=== PATIENT | female | born 1945 | race Caucasian/White ===

== ENCOUNTER 2017-01-07 18:21 | Inpatient (IN) | payer OTHER, BC ==
[~2017-01-07] VITALS: Ht 149.9 cm; Wt 82.8 kg
[2017-01-07 20:14] LABS: HEMATOCRIT 38.3 % (36.0-46.0); MCH 30.1 PG (29.0-34.0); MCHC 33.7 G/DL (30.0-36.0); MCV 89.5 FL (83-99); MEAN PLAT.VOLUME 9.3 uM^3 (9.5-12.4); PLATELET COUNT 345 K/uL (156-360); RBC DIS.WIDTH-CV 14.2 % (11.8-14.6); RBC DIS.WIDTH-SD 46.4 % (39-53); RED BLOOD COUNT 4.28 M/uL (3.80-5.20); WHITE BLOOD COUNT 14.5 K/uL (4.1-10.2)
[2017-01-07 20:48] LABS: CHLORIDE 97 mEq/L (99-109); POTASSIUM 3.3 mEq/L (3.7-5.4); SODIUM 137 mEq/L (136-147)
[2017-01-07 20:50] LABS: GLUCOSE 103 mg/dL (70-99)
[2017-01-07 20:51] LABS: ANION GAP 18 MEQ/L (2-14)
[2017-01-07 20:54] LABS: GFR ESTIMATE (CALCULATED) > 59 mL/min/
[2017-01-07 20:55] LABS: UREA NITROGEN (BUN) 21 mg/dL (9-23)
[2017-01-07] MEDS ORDERED: XIIDRA1 EACH BOTH EYES (21:13)
[2017-01-07] MEDS ORDERED: LOVASTATIN40 MG PO (21:13)
[2017-01-07] MEDS ORDERED: MELOXICAM7.5 MG PO (21:14)
[2017-01-07] MEDS ORDERED: REQUIP0.25 MG PO (21:14)
[2017-01-07] MEDS ORDERED: SINGULAIR10 MG PO (21:14)
[2017-01-07] MEDS ORDERED: VANIQA 13.9% CR30 GM TP (21:14)
[2017-01-07] MEDS ORDERED: HYDROCHLOROTH12.5 M3 PO (21:14)
[2017-01-07] MEDS ORDERED: ATENOLOL25 MG PO (21:14)
[2017-01-07] MEDS ORDERED: GABAPENTIN300 MG PO (21:14)
[2017-01-07] MEDS ORDERED: FLUOXETINE HCL40 MG PO (21:15)
[2017-01-07] MEDS ORDERED: SYMBICORT60 INHALAT IH (21:15)
[2017-01-07] MEDS ORDERED: NASONEX17 GM BOTH NARES (21:15)
[2017-01-08 02:30] VITALS: BP 134/77
[2017-01-08 06:11] LABS: HEMATOCRIT 34.3 % (36.0-46.0); MCH 30.2 PG (29.0-34.0); MCHC 33.8 G/DL (30.0-36.0); MCV 89.3 FL (83-99); MEAN PLAT.VOLUME 9.3 uM^3 (9.5-12.4); PLATELET COUNT 313 K/uL (156-360); RBC DIS.WIDTH-CV 14.1 % (11.8-14.6); RBC DIS.WIDTH-SD 45.9 % (39-53); RED BLOOD COUNT 3.84 M/uL (3.80-5.20); WHITE BLOOD COUNT 13.5 K/uL (4.1-10.2)
[2017-01-08 06:33] LABS: ANION GAP 11 MEQ/L (2-14); CHLORIDE 99 MEQ/L (99-109); GFR ESTIMATE (CALCULATED) > 59 mL/min/; SAMPLE HEMOLYSIS CHECK 0; SAMPLE ICTERIC CHECK 0; SAMPLE LIPEMIA CHECK 0; SODIUM 139 MEQ/L (136-147); UREA NITROGEN (BUN) 18 mg/dL (9-23)
[2017-01-08 06:36] LABS: GLUCOSE 170 mg/dL (70-99); POTASSIUM 4.5 MEQ/L (3.7-5.4)
[2017-01-08 07:33] VITALS: BP 159/81
[2017-01-08 11:32] VITALS: BP 111/61
[2017-01-08 15:44] VITALS: BP 131/65
[2017-01-08 19:26] VITALS: BP 129/68
[2017-01-08 23:22] VITALS: BP 141/79
[2017-01-09 03:47] VITALS: BP 158/79
[2017-01-09 05:56] LABS: HEMATOCRIT 34.1 % (36.0-46.0); MCH 30.7 PG (29.0-34.0); MCHC 33.7 G/DL (30.0-36.0); MCV 91.2 FL (83-99); MEAN PLAT.VOLUME 9.4 uM^3 (9.5-12.4); PLATELET COUNT 376 K/uL (156-360); RBC DIS.WIDTH-CV 14.6 % (11.8-14.6); RBC DIS.WIDTH-SD 49.2 % (39-53); RED BLOOD COUNT 3.74 M/uL (3.80-5.20); WHITE BLOOD COUNT 15.3 K/uL (4.1-10.2)
[2017-01-09 06:18] LABS: ALKALINE PHOSPHATASE 106 IU/L (3-129); ANION GAP 12 MEQ/L (2-14); CHLORIDE 104 MEQ/L (99-109); GFR ESTIMATE (CALCULATED) > 59 mL/min/; GLUCOSE 171 mg/dL (70-99); POTASSIUM 3.8 MEQ/L (3.7-5.4); SAMPLE HEMOLYSIS CHECK 0; SAMPLE ICTERIC CHECK 0; SAMPLE LIPEMIA CHECK 0; SODIUM 141 MEQ/L (136-147); TOTAL BILIRUBIN 0.4 MG/DL (0.0-1.0); UREA NITROGEN (BUN) 16 mg/dL (9-23)
[2017-01-09 07:15] VITALS: BP 167/82
[2017-01-09 07:43] LABS: ABS NEUTROPHIL COUNT 13.7; BAND NEUTROPHILS 8.7 % (0-8.0); EOSINOPHIL ABS CT 0; INSTRUMENT ABS NEUTROPHIL CT 12.1 K/uL; LYMPHOCYTES 6.9 % (15.0-45.0); METAMYELOCYTES 1.7 %; MYELOCYTES 0.9 %; PLAT.SUFFICIENCY ADEQUATE; SEG.NEUTROPHILS 80.9 % (46.0-76.0)
[2017-01-09 08:53] LABS: INTERNAL CONTROL VALID? YES
[2017-01-09 11:15] VITALS: BP 174/90
[2017-01-09 15:38] VITALS: BP 158/77
[2017-01-09 19:38] VITALS: BP 147/80
[2017-01-10 01:06] VITALS: BP 154/77
[2017-01-10 04:39] VITALS: BP 140/82
[2017-01-10 06:24] LABS: HEMATOCRIT 34.7 % (36.0-46.0); MCH 31.3 PG (29.0-34.0); MEAN PLAT.VOLUME 9.4 uM^3 (9.5-12.4); NRBC (%) 0.2 /100 WBC (0-0); PLATELET COUNT 395 K/uL (156-360); RBC DIS.WIDTH-CV 14.8 % (11.8-14.6); RBC DIS.WIDTH-SD 49.9 % (39-53); RED BLOOD COUNT 3.77 M/uL (3.80-5.20)
[2017-01-10 06:46] LABS: ANION GAP 10 MEQ/L (2-14); CHLORIDE 103 MEQ/L (99-109); GFR ESTIMATE (CALCULATED) > 59 mL/min/; GLUCOSE 163 mg/dL (70-99); POTASSIUM 4.1 MEQ/L (3.7-5.4); SAMPLE HEMOLYSIS CHECK 0; SAMPLE ICTERIC CHECK 0; SAMPLE LIPEMIA CHECK 0; SODIUM 142 MEQ/L (136-147); UREA NITROGEN (BUN) 18 mg/dL (9-23)
[2017-01-10 07:41] VITALS: BP 161/79
[2017-01-10 14:22] LABS: C DIFF TOXIN POSITIVE (NEGATIVE)
[2017-01-10 14:23] LABS: PROBE CHECK PASS
[2017-01-10 23:42] VITALS: BP 167/86; BP 187/86
[2017-01-11 07:22] LABS: HEMATOCRIT 38.1 % (36.0-46.0); MCH 31.3 PG (29.0-34.0); MCHC 34.4 G/DL (30.0-36.0); MCV 90.9 FL (83-99); MEAN PLAT.VOLUME 9.1 uM^3 (9.5-12.4); NRBC (%) 0.7 /100 WBC (0-0); PLATELET COUNT 460 K/uL (156-360); RBC DIS.WIDTH-CV 14.4 % (11.8-14.6); RED BLOOD COUNT 4.19 M/uL (3.80-5.20); WHITE BLOOD COUNT 18.3 K/uL (4.1-10.2)
[2017-01-11 07:40] VITALS: BP 164/88
[2017-01-11 07:45] LABS: ANION GAP 13 MEQ/L (2-14); CHLORIDE 101 MEQ/L (99-109); GFR ESTIMATE (CALCULATED) > 59 mL/min/; GLUCOSE 174 mg/dL (70-99); POTASSIUM 4.1 MEQ/L (3.7-5.4); SAMPLE HEMOLYSIS CHECK 0; SAMPLE ICTERIC CHECK 0; SAMPLE LIPEMIA CHECK 0; SODIUM 141 MEQ/L (136-147); UREA NITROGEN (BUN) 19 mg/dL (9-23)
[2017-01-11 08:22] LABS: ABS NEUTROPHIL COUNT 14.3; ANISOCYTOSIS 1+; ATYPICAL LYMPHOCYTE 1.8 %; BAND NEUTROPHILS 1.8 % (0-8.0); EOSINOPHIL ABS CT 0; INSTRUMENT ABS NEUTROPHIL CT 13.7 K/uL; METAMYELOCYTES 3.6 %; MYELOCYTES 0.9 %; PLAT.SUFFICIENCY INCREASED; SEG.NEUTROPHILS 76.4 % (46.0-76.0)
[2017-01-11 15:50] VITALS: BP 158/84
[2017-01-12] VITALS: BP 178/88
[2017-01-12 06:43] LABS: HEMATOCRIT 37.3 % (36.0-46.0); MCHC 33.2 G/DL (30.0-36.0); MCV 90.1 FL (83-99); MEAN PLAT.VOLUME 9.1 uM^3 (9.5-12.4); NRBC (%) 0.4 /100 WBC (0-0); PLATELET COUNT 363 K/uL (156-360); RBC DIS.WIDTH-CV 13.9 % (11.8-14.6); RBC DIS.WIDTH-SD 45.7 % (39-53); RED BLOOD COUNT 4.14 M/uL (3.80-5.20); WHITE BLOOD COUNT 14.6 K/uL (4.1-10.2)
[2017-01-12 07:05] LABS: ANION GAP 13 MEQ/L (2-14); CHLORIDE 99 MEQ/L (99-109); GFR ESTIMATE (CALCULATED) > 59 mL/min/; GLUCOSE 153 mg/dL (70-99); POTASSIUM 3.9 MEQ/L (3.7-5.4); SAMPLE HEMOLYSIS CHECK 1; SAMPLE ICTERIC CHECK 0; SAMPLE LIPEMIA CHECK 0; SODIUM 140 MEQ/L (136-147); UREA NITROGEN (BUN) 19 mg/dL (9-23)
[2017-01-12 07:33] LABS: BAND NEUTROPHILS 2.6 % (0-8.0); EOSINOPHIL ABS CT 0; HEMATOLOGY COMMENT 1 SN; INSTRUMENT ABS NEUTROPHIL CT 11.3 K/uL; METAMYELOCYTES 0.9 %; NUCLEATED RBC'S 0.9; PLAT.SUFFICIENCY ADEQUATE; SEG.NEUTROPHILS 86.7 % (46.0-76.0)
[2017-01-12 07:40] VITALS: BP 140/82
[2017-01-12 15:30] VITALS: BP 138/78
[2017-01-13 00:05] VITALS: BP 154/85
[2017-01-13 08:05] VITALS: BP 124/92
[2017-01-13 16:40] VITALS: BP 118/92
[2017-01-13 23:19] VITALS: BP 138/79
[2017-01-14 07:15] VITALS: BP 118/82
[2017-01-14 15:50] VITALS: BP 116/80
[2017-01-15 00:05] VITALS: BP 133/70
[2017-01-15 08:07] VITALS: BP 120/68
[2017-01-15 15:23] VITALS: BP 116/62
[2017-01-16 00:52] VITALS: BP 129/78
[2017-01-16 06:58] VITALS: BP 128/62
[2017-01-16] MEDS ORDERED: CEFDINIR300 MG PO (12:40)
[2017-01-16] MEDS ORDERED: VANCOMYCIN HCL125 MG PO (12:44)
[2017-01-16] MEDS ORDERED: PREDNISONE5 MG PO (12:44)
[2017-01-16] MEDS ORDERED: RANITIDINE HCL150 MG PO (12:47)
[2017-01-16] MEDS ORDERED: COUGH & CHEST177 ML PO (13:07)
== END 2017-01-16 14:05 | disposition home or self-care (01) | DRG 871 ==
LOC: RME 18:21 → EME 18:21 → 2EAST 22:11 → EDOF 22:11 → ENRESERV 22:12 → 2EAST 01-08 02:13
PROVIDERS: Family Medicine; Hospitalist; Student in an Organized Health Care Education/Training Program
DX: A41.9 Sepsis, unspecified organism (principal); J18.9 Pneumonia, unspecified organism; J96.01 Acute respiratory failure with hypoxia; A04.7 Enterocolitis due to Clostridium difficile; J45.41 Moderate persistent asthma with (acute) exacerbation; J44.0 Chronic obstructive pulmonary disease with (acute) lower respiratory infection; S80.02XA Contusion of left knee, initial encounter; E78.5 Hyperlipidemia, unspecified; G25.81 Restless legs syndrome; I10 Essential (primary) hypertension; E87.6 Hypokalemia; Z90.49 Acquired absence of other specified parts of digestive tract; Z79.51 Long term (current) use of inhaled steroids; Z88.0 Allergy status to penicillin; W18.30XA Fall on same level, unspecified, initial encounter; Y93.89 Activity, other specified; Y92.814 Boat as the place of occurrence of the external cause
CPT/HCPCS: 71010; 71020; 73590; 80048; 80053; 83605; 85025; 85027; 87040; 87070; 87106; 87205; 87449; 87493; 93971; 94010; 94640; 94640 76; 94667; 94668; 94799; 99202; 99281; 99285; J0456; J0696; J1100; J1650; J2920; J3480; J7030; J7050